=== PATIENT | male | born 1930 | race Caucasian/White ===

== ENCOUNTER 2016-07-24 10:55 | Emergency (ER) | payer OTHER ==
[2016-07-24 11:16] VITALS: BP 151/94; PULSE 76; RESP 16; TEMP 98.1; O2SAT 97
--- NOTE | 2016-07-24 11:24 | EDPHY ---
H & P Time Seen by Provider: 07/24/16 10:59 HPI/ROS: 86-year-old male presents complaining of fall 4 days ago scraping his left forearm, he came today to have it checked. For the last several days his has been keeping it clean. He denies fevers or chills, he denies significant pain. Review of systems As per HPI General no fever no chills no weakness HEENT no eye pain no eye discharge. No eye redness, no sore throat Respiratory no cough, no shortness of breath Cardiac no chest pain, no peripheral edema GI no abdominal pain, no diarrhea, no constipation, no nausea, no vomiting no flank pain, no hematuria, no dysuria Musculoskeletal no myalgias, no joint pain Heme no easy bruising, no easy bleeding Endo no polyuria, no polydipsia Skin no rashes, no pruritus Neuro no syncope, no dizziness, no headaches Psych is no suicidal ideation, no homicidal ideation Past Medical/Surgical History: GERD, glaucoma Social History: Denies alcohol or drug use Smoking Status: Never smoked Physical Exam: 86-year-old male Alert and oriented in no acute distress nontoxic appearance, afebrile Atraumatic normocephalic Neck no JVD Lungs clear to auscultation, no respiratory distress Heart regular rate and rhythm Extremities no cyanosis clubbing edema Left forearm distal dorsal aspect with 2 areas of skin tears no erythema no drainage, no crusting Constitutional: Initial Vital Signs Temperature (C) 36.7 C 07/24/16 11:12 Heart Rate 76 07/24/16 11:12 Respiratory Rate 16 07/24/16 11:12 Blood Pressure 151/94 H 07/24/16 11:12 O2 Sat (%) 97 07/24/16 11:12 O2 Delivery Mode Room Air Allergies/Adverse Reactions: TINCTURE OF BENZOIN Allergy (Severe, Uncoded 08/18/13 10:30) Other-Enter Comments Home Medications: Medication Instructions Recorded Aspirin [Aspirin 325 mg (*)] 325 mg PO DAILY 07/05/14 Brimonidine/Timolol [Combigan (*)] 1 drop EACHEYE BID 07/05/14 Cholecalciferol Vit D3 [Vitamin D3 5,000 units PO DAILY 07/05/14 (*)] Fluorometholone [Fml (*)] 1 drop EACHEYE DAILY 07/05/14 Multivitamins [Multivitamin (*)] 1 each PO DAILY 07/05/14 Ranitidine HCl [Zantac] 150 mg PO BID 07/05/14 cycloSPORINE 0.05% [Restasis Opht 1 drop EACHEYE BID 07/05/14 Drops(*)] Hydrocodone/APAP 5/325 [[place] 1 - 2 tab PO Q3 PRN #30 tab 07/10/14 5/325 (*)] Metoprolol Tartrate [Lopressor 25 12.5 mg PO BID #60 tab 07/10/14 mg (*)] Medical Decision Making ED Course/Re-evaluation: Patient seen and evaluated for left forearm skin tear Provided wound care Impression Simple skin tears Appear clean no evidence of infection Plan Continue to keep skin tears clean and dry Return as needed Departure - Departure Disposition: Home, Routine, Self-Care Clinical Impression: Skin tear of forearm without complication Condition: Good Instructions: Skin Tear (ED) Referrals: Sydnee Gupta MD [Primary Care Provider] - As per Instructions
== END 2016-07-24 11:40 | disposition home or self-care (01) ==
LOC: CED 10:55
DX: S51.812A Laceration without foreign body of left forearm, initial encounter (principal); Z79.82 Long term (current) use of aspirin; W19.XXXA Unspecified fall, initial encounter

== ENCOUNTER → 2016-09-13 | Outpatient (CLI) | payer OTHER | LOC: BHLMT 10:45 | PROVIDERS: ATTEND Internal Medicine Cardiovascular Disease | DX: I34.0 Nonrheumatic mitral (valve) insufficiency (principal); I35.1 Nonrheumatic aortic (valve) insufficiency; I50.9 Heart failure, unspecified; Z95.1 Presence of aortocoronary bypass graft | CPT/HCPCS: 93306-PO ==

== ENCOUNTER → 2016-09-21 | Outpatient (CLI) | payer OTHER | LOC: FIMAGING 09:16 | PROVIDERS: ATTEND Internal Medicine Cardiovascular Disease | DX: E04.2 Nontoxic multinodular goiter (principal) ==

== ENCOUNTER → 2016-10-05 | Outpatient (CLI) | payer OTHER | LOC: BHFA 13:00 | PROVIDERS: ATTEND Internal Medicine Cardiovascular Disease | DX: I35.1 Nonrheumatic aortic (valve) insufficiency (principal) | CPT/HCPCS: 78452; 93017; A9500; J2785 ==

== ENCOUNTER 2017-10-24 14:50 | Emergency (ER) | payer OTHER, MEDICARE ==
[2017-10-24 14:56] VITALS: BP 154/95
--- NOTE | 2017-10-24 15:41 | EDPHY ---
H & P Time Seen by Provider: 10/24/17 15:32 HPI/ROS: CHIEF COMPLAINT: Skin tear right arm HISTORY OF PRESENT ILLNESS: 79-year-old male presents emergency department with skin tear to his right forearm. The patient accidentally tripped and somehow caught his arm on the corner of a wall. He did not hit his head or lose consciousness. Complains of isolated pain to the right forearm overlying the skin tear. He believes his tetanus shot is current. He is right-hand dominant. ROS: Denies numbness or tingling in his fingers, retained foreign body, pain in his right wrist or elbow. Past Medical/Surgical History: Pacemaker, hernia, orthopedic surgery, ulcer Social History: Smoking Status: Never smoked Physical Exam: On examination the patient has a small skin tear and skin avulsion to the dorsal mid shaft of the right forearm. No signs of bleeding. No signs of infection. No evidence of retained foreign body. No palpable bony tenderness. Full range of motion of his upper extremities. No suturable lacerations noted. Constitutional: Initial Vital Signs Temperature (C) 36.5 C 10/24/17 14:53 Heart Rate 99 10/24/17 14:53 Respiratory Rate 18 10/24/17 14:53 Blood Pressure 154/95 H 10/24/17 14:53 O2 Sat (%) 94 10/24/17 14:53 O2 Delivery Mode Room Air Allergies/Adverse Reactions: TINCTURE OF BENZOIN Allergy (Severe, Uncoded 10/24/17 14:56) Other-Enter Comments Home Medications: Medication Instructions Recorded Aspirin [Aspirin 325 mg (*)] 325 mg PO DAILY 07/05/14 Brimonidine/Timolol [Combigan (*)] 1 drop EACHEYE BID 07/05/14 Cholecalciferol Vit D3 [Vitamin D3 5,000 units PO DAILY 07/05/14 (*)] Fluorometholone [Fml (*)] 1 drop EACHEYE DAILY 07/05/14 Multivitamins [Multivitamin (*)] 1 each PO DAILY 07/05/14 Ranitidine HCl [Zantac] 150 mg PO BID 07/05/14 cycloSPORINE 0.05% [Restasis Opht 1 drop EACHEYE BID 07/05/14 Drops(*)] Hydrocodone/APAP 5/325 [[place] 1 - 2 tab PO Q3 PRN #30 tab 07/10/14 5/325 (*)] Metoprolol Tartrate [Lopressor 25 12.5 mg PO BID #60 tab 07/10/14 mg (*)] MDM/Departure - MDM Procedures: Surgical foam dressing applied after with the wound was thoroughly cleansed. Patient tolerated this quite well. ED Course/Re-evaluation: 87-year-old male presents with superficial skin tear. Surgical foam dressing applied. The patient was given wound care precautions. I do not think sutures are indicated. He did have an area of avulsed tissue which will heal by secondary intention. He was given wound care precautions. - Depart Disposition: Home, Routine, Self-Care Clinical Impression: Skin tear of right upper extremity Condition: Good Instructions: Skin Tear (ED), Acute Wounds (ED) Additional Instructions: Keep dressing on and keep it dry for 48-72 hours. After that you may have an open to the air. Please return to the emergency department if you develop any concerns of infection including redness, swelling, increased pain, fever, purulent drainage. Referrals: Sydnee Gupta MD [Primary Care Provider] - As per Instructions
== END 2017-10-24 15:48 | disposition home or self-care (01) ==
DX: S51.811A Laceration without foreign body of right forearm, initial encounter (principal); W01.119A Fall on same level from slipping, tripping and stumbling with subsequent striking against unspecified sharp object, initial encounter; Y99.8 Other external cause status

== ENCOUNTER 2017-10-27 14:41 | Emergency (ER) | payer OTHER, MEDICARE ==
[2017-10-27 14:50] VITALS: BP 126/85
--- NOTE | 2017-10-27 15:30 | EDPHY ---
H & P Stated Complaint: Skin tear not any better on RFA;started bleeding after he removed dsg Time Seen by Provider: 10/27/17 15:20 HPI/ROS: CHIEF COMPLAINT: Skin tear HISTORY OF PRESENT ILLNESS: The patient is an 87-year-old man who bumped his right arm on the door several days ago. He suffered a skin tear. He was seen here a dressed with Surgifoam and gauze. He was told to leave it in place for 3 days. When he took the gauze off today it was stuck to the wound and began bleeding again. Is very shallow and easily controlled with slight pressure. He denies other injuries. No sign of infection. No fever. Severity: Moderate REVIEW OF SYSTEMS: Constitutional: denies: chills, fever, recent illness, recent injury EENTM: denies: blurred vision, double vision, nose congestion Respiratory: denies: cough, shortness of breath Cardiac: denies: chest pain, irregular heart rate, lightheadedness, palpitations Gastrointestinal/Abdominal: denies: abdominal pain, diarrhea, nausea, vomiting, blood streaked stools Genitourinary: denies: dysuria, frequency, hematuria, pain Musculoskeletal: denies: joint pain, muscle pain Skin: See HPI Neurological: denies: headache, numbness, paresthesia, tingling, dizziness, weakness Hematologic/Lymphatic: denies: blood clots, easy bleeding, easy bruising Immunologic/allergic: denies: HIV/AIDS, transplant 10 systems reviewed and negative except as noted EXAM: GENERAL: Well-appearing, well-nourished and in no acute distress. HEAD: Atraumatic, normocephalic. EYES: Pupils equal round and reactive to light, extraocular movements intact, sclera anicteric, conjunctiva are normal. ENT: TMs normal, nares patent, oropharynx clear without exudates. Moist mucous membranes. NECK: Normal range of motion, supple without lymphadenopathy or JVD. LUNGS: Breath sounds clear to auscultation bilaterally and equal. No wheezes rales or rhonchi. HEART: Regular rate and rhythm without murmurs, rubs or gallops. ABDOMEN: Soft, nontender, normoactive bowel sounds. No guarding, no rebound. No masses appreciated. BACK: No CVA tenderness, no spinal tenderness, step-offs or deformities EXTREMITIES: Normal range of motion, no pitting or edema. No clubbing or cyanosis. NEUROLOGICAL: Cranial nerves II through XII grossly intact. Normal speech, normal gait. 5/5 strength, normal movement in all extremities, normal sensation , normal reflexes PSYCH: Normal mood, normal affect. SKIN: Small skin tear right forearm. Minimal oozing. Easily controlled with pressure. Source: Patient Exam Limitations: No limitations - Personal History Current Tetanus Diphtheria and Acellular Pertussis (TDAP): Yes - Medical/Surgical History Hx Asthma: No Hx Chronic Respiratory Disease: No Hx Diabetes: No Hx Cardiac Disease: Yes Hx Renal Disease: No Hx Cirrhosis: No Hx Alcoholism: No Hx HIV/AIDS: No Hx Splenectomy or Spleen Trauma: No Other PMH: pacemaker hernia surgery/htn. NEW Right Neck "Mass" noted via OR verbal report to RN. left hip, right and left rotator cuff repair, ulcer - Family History Significant Family History: No pertinent family hx - Social History Smoking Status: Never smoked Alcohol Use: Sober Drug Use: None Constitutional: Initial Vital Signs Temperature (C) 36.5 C 10/27/17 14:47 Heart Rate 84 10/27/17 14:47 Respiratory Rate 18 10/27/17 14:47 Blood Pressure 126/85 H 10/27/17 14:47 O2 Sat (%) 97 10/27/17 14:47 O2 Delivery Mode Room Air Allergies/Adverse Reactions: TINCTURE OF BENZOIN Allergy (Severe, Uncoded 10/24/17 14:56) Other-Enter Comments Home Medications: Medication Instructions Recorded Aspirin [Aspirin 325 mg (*)] 325 mg PO DAILY 07/05/14 Brimonidine/Timolol [Combigan (*)] 1 drop EACHEYE BID 07/05/14 Cholecalciferol Vit D3 [Vitamin D3 5,000 units PO DAILY 07/05/14 (*)] Fluorometholone [Fml (*)] 1 drop EACHEYE DAILY 07/05/14 Multivitamins [Multivitamin (*)] 1 each PO DAILY 07/05/14 Ranitidine HCl [Zantac] 150 mg PO BID 07/05/14 cycloSPORINE 0.05% [Restasis Opht 1 drop EACHEYE BID 07/05/14 Drops(*)] Hydrocodone/APAP 5/325 [[place] 1 - 2 tab PO Q3 PRN #30 tab 07/10/14 5/325 (*)] Metoprolol Tartrate [Lopressor 25 12.5 mg PO BID #60 tab 07/10/14 mg (*)] Medical Decision Making ED Course/Re-evaluation: 3:30 p.m. the patient's arm was dressed with Surgicel and Vaseline impregnated gauze to avoid adherence and bandages. We instructed him to leave them place for 48 hr wound check. He understands and agrees with this plan. He declines further workup or testing at this time. Differential Diagnosis: Partial list of the Differential diagnosis considered include but were not limited to; skin tear, hemorrhage and although unlikely based on the history and physical exam, I also considered foreign body, infection. I discussed these differential diagnoses and the plan with the patient as well as the usual and expected course. The patient understands that the diagnosis is provisional and that in medicine we are not always correct and that further workup is often warranted. Usual and customary warnings were given. All of the patient's questions were answered. The patient was instructed to return to the emergency department should the symptoms at all worsen or return, otherwise to followup with the physician as we discussed. Departure - Departure Disposition: Home, Routine, Self-Care Clinical Impression: Skin tear of right upper arm without complication Qualifiers: Encounter type: initial encounter Qualified Code(s): S41.111A - Laceration without foreign body of right upper arm, initial encounter Condition: Fair Instructions: Skin Tear (ED) Additional Instructions: Remove it bandaged some 2-3 days and dressed again. If bleeding continues simply rebounded until it stops. Referrals: Sydnee Gupta MD [Primary Care Provider] - As per Instructions
== END 2017-10-27 15:35 | disposition home or self-care (01) ==
DX: S41.111A Laceration without foreign body of right upper arm, initial encounter (principal); W22.8XXA Striking against or struck by other objects, initial encounter

== ENCOUNTER 2018-08-11 11:06 | Day surgery (SDC) | payer OTHER, MEDICARE | END 2018-08-11 19:24 | disposition home or self-care (01) | LOC: FCATH 11:06 ==